=== PATIENT | female | born 1935 | race Caucasian/White ===

== ENCOUNTER 2017-05-21 14:29 | Emergency (ER) | payer OTHER ==
[~2017-05-21] VITALS: Ht 172.7 cm; Wt 68.0 kg
--- NOTE | ~2017-05-21 | EKG ---
[place] [address] [facility] [place] [address] ELECTROCARDIOGRAM REPORT Name: ABDELRAHMAN TAMEZ [id number] Admission: 05/21/17 Attend Phys: Discharge: 05/21/17 Date of : 31 Report #: [id number] THIS REPORT FOR: //name// [facility] ED Test Date: 2017-05-21 Test Time: 15:18:39 Pat Name: ABDELRAHMAN TAMEZ Department: Room: Gender: F Frame Nailer: MZOOK : 1935 Requested By: Anya Harman Order Number: [id number] MD: Anton Alexander Measurements Intervals [place] Rate: 52 P: 57 [place]: 179 QRS: -8 QRSD: 93 T: 212 QT: 424 QTc: 395 Interpretive Statements Sinus bradycardia Probable left atrial enlargement Abnormal R-wave progression, early transition LVH with secondary repolarization abnormality Compared to ECG 11/06/2016 19:48:34 No significant changes Electronically Signed On 05-24-2017 13:27:36 CDT by Anton Alexander [email or web address] <ELECTRONICALLY SIGNED> By: Anton Alexander MD, [facility] 05/24/17 1327 1518 1518 Anton Alexander MD, [facility] /EPI
[~2017-05-21 14:29] MED LIST: ACCUNEB SO1.25 MG/1; ALDACTONE25 MG PO; AMARYL2 MG PO; AMARYL4 MG PO; AMOXICILLIN/POTASSIU PO; ARTIFICIAL TEAR15 M9 OPHTHALMIC; ASPIRIN EC81 M1 PO; ATIVAN PO; ATIVAN0.5 MG; ATIVAN1 MG PO; AUGMENTIN 875875 M1 PO; BENICAR40 MG OR; BENICAR40 MG PO; BYSTOLIC10 MG OR; BYSTOLIC10 MG PO; BYSTOLIC20 MG PO; CALCITONIN NASAL; CATAPRES-TTS 10.1 MG PO; CATAPRES-TTS 10.1 MG TRANSDERM; CATAPRES-TTS 20.2 MG PO; CLARITIN-D 12 H1 TA1; CLARITIN-D 12 H1 TA1 PO; CLARITIN10 MG PO; CLONIDINE HCL0.2 M2 GT; CLONIDINE HCL0.2 M2 PO; CLONIDINE0.1 PO; DIAZEPAM 2MG TAB2 MG PO; ENALAPRIL MALEA10 M1 OR; ENALAPRIL MALEA10 M1 PO; ERYPED 200200 MG/51 PO; FLAGYL500 MG PO; FLOMAX0.4 MG; FLOMAX0.4 MG PO; FUROSEMIDE 40 M40 M1 PO; GLUCOSE4 GM PO; HYDRALAZINE 2525 M1 PO; HYDROCHLOROTH12.5 MG PO; HYDROCODON-ACE1 EAC5 PO; IMODIUM MULTI-1 EACH PO; LANTUS SC; LANTUS SUBQ; LANTUS100 UNIT/M SUBQ; LASIX 20 MG TAB20 MG PO; LASIX 40 MG TAB40 M1 PO; LASIX 40 MG TAB40 M2 PO; LAXATIVE PEG 3317 GM PO; LEVAQUIN 500 M500 M1 PO; LIDODERM 5%1 PATCH; LIDODERM 5%1 PATCH TRANSDERM; LOMOTIL TABLET1 EACH PO; LOPERAMIDE 2 MG2 M1 PO; LOPRESSOR 50 MG50 M1 PO; LORAZEPAM 0.50.5 MG PO; LORAZEPAM 1 MG T1 M1 PO; LORCET PLUS 7.51 TA1 PO; LORTAB; MACROBID 100 M100 M2 PO; MAGOX 400400 MG PO; MIRALAX17 GM PO; MIRALAX255 GM PO; MS CONTIN 60 MG60 M1 PO; MS CONTIN15 MG PO; MS CONTIN30 MG PO; MUCINEX TA600 MG/TA2 PO; NICARDIPINE HCL20 MG PO; NORVASC10 MG PO; OMEPRAZOLE 20 M20 MG PO; ONDANSETRON HCL4 M2 PO; PHENAZOPYRIDIN200 M2 PO; PRILOSEC OTC20 MG PO; PRILOSEC20 MG PO; PROMETHAZINE12.5 M1 PO; PROTONIX40 M2 PO; REGLAN 10 MG TA10 MG PO; SENOKOT-S1 TA1 PO; SPIRONOLACTONE25 M1 PO; SPIRONOLACTONE25 MG PO; TAMSULOSIN HCL0.4 M1 PO; TEKTURNA HCT 11 EACH OR; TOPROL XL100 MG PO; TOPROL XL50 MG; TRAZODONE HCL50 MG PO; URIBEL CAPSULE1 EACH PO; VALIUM10 MG PO; VALIUM2 MG PO; ZOFRAN ODT4 MG DISSOLVE; ZOFRAN ODT4 MG PO; ZOFRAN4 MG PO; ZOLOFT; ZOLOFT 50 MG TA50 M1 PO; ZOLOFT100 MG OR; ZOLOFT100 MG PO
[2017-05-21 15:41] LABS: ABSOLUTE NEUTROPHILS 3.8 thou/uL (1.4-8.2); BASOPHILS 0.6 % (0.0-2.0); EOSINOPHILS 2.2 % (0.0-3.0); HEMATOCRIT 30.8 % (37.0-47.0); HEMOGLOBIN 10.1 gm/dL (12.0-15.0); LYMPHOCYTES 28.1 % (24.0-44.0); MCH 26.7 pg (26.0-34.0); MCHC 32.7 g/dL (28.0-37.0); MCV 81.5 fL (80.0-100.0); MONOCYTES 7.1 % (1.0-8.0); PLATELET COUNT 187 thou/uL (150-400); RBC 3.78 mil/uL (4.20-5.00); RDW 14.4 % (10.5-14.5); WBC 6.2 thou/uL (4.0-11.0)
[2017-05-21 15:42] LABS: MANUAL DIFF NO
[2017-05-21 15:52] LABS: CALCIUM 9.8 mg/dL (8.5-10.1); CREATININE 1.4 mg/dL (0.6-1.0); POTASSIUM 4.1 mmol/L (3.5-5.1)
[2017-05-21 16:01] LABS: ALBUMIN 3.7 g/dL (3.4-5.0); TOTAL BILIRUBIN 0.2 mg/dL (<0.1-1.0); TOTAL PROTEIN 7.8 g/dL (6.4-8.2); TROPONIN-I 0.04 ng/mL (<0.04-0.07)
[2017-05-21 16:10] LABS: INR 1.3; PROTIME 13.5 Seconds (9.3-11.4)
[2017-05-21 16:47] LABS: URINE BILIRUBIN NEGATIVE (Negative); URINE BLOOD 1+ (Negative); URINE COLOR YELLOW; URINE GLUCOSE-RANDOM* NEGATIVE (Negative); URINE KETONES NEGATIVE (Negative); URINE NITRITE POSITIVE (Negative); URINE PROTEIN (DIPSTICK) NEGATIVE (Negative); URINE SPECIFIC GRAVITY 1.015 (1.003-1.035); URINE UROBILINOGEN 0.2 E.U./dl (0.2-1.0)
[2017-05-21 16:58] LABS: SQUAMOUS 4-10 Moderate /LPF (0-3)
[2017-05-21 16:59] LABS: BACTERIA >30 Many /HPF (None Seen); CASTS None Seen /LPF (None Seen); URINE RBC 3-10 Few /HPF (0-2); URINE WBC 6-15 Few /HPF (0-5)
[2017-05-21 17:00] LABS: CRYSTALS None Seen /LPF (None Seen); YEAST Present (None Seen)
[2017-05-21 18:59] VITALS: BP 140/56
== END 2017-05-21 19:01 | disposition home or self-care (01) ==
LOC: ER 14:29
PROVIDERS: Nurse Practitioner Family
DX: S00.12XA Contusion of left eyelid and periocular area, initial encounter (principal); S09.90XA Unspecified injury of head, initial encounter; N39.0 Urinary tract infection, site not specified; I10 Essential (primary) hypertension; E11.9 Type 2 diabetes mellitus without complications; E78.00 Pure hypercholesterolemia, unspecified; M19.90 Unspecified osteoarthritis, unspecified site; F32.9 Major depressive disorder, single episode, unspecified; F41.9 Anxiety disorder, unspecified; F03.90 Unspecified dementia, unspecified severity, without behavioral disturbance, psychotic disturbance, mood disturbance, and anxiety; Z91.81 History of falling; Z96.653 Presence of artificial knee joint, bilateral; W18.39XA Other fall on same level, initial encounter; Y93.89 Activity, other specified; Y92.009 Unspecified place in unspecified non-institutional (private) residence as the place of occurrence of the external cause; Y99.8 Other external cause status

== ENCOUNTER 2017-07-05 22:00 | Inpatient (IN) | payer OTHER ==
[~2017-07-05] VITALS: Ht 162.6 cm; Wt 54.9 kg
--- NOTE | ~2017-07-05 | D ---
[facility] [address] DISCHARGE SUMMARY Name: ABDELRAHMAN TAMEZ Room #: 404-P [facility] IN M.R.#: [id number] Admission: 07/06/17 Attend Phys: Radha Ellis Discharge: 07/12/17 Date of : 31 Report #: [id number] THIS REPORT FOR: //name// CC: Gregory Spring FINAL DIAGNOSES: 1. Intractable nausea and vomiting. 2. Aortic stenosis. 3. Hypertension. HOSPITAL COURSE: The patient was admitted from hospice at the [facility] for intractable nausea and vomiting. It took several days of IV support to control her symptoms, patch to control blood pressure along with scopolamine and scheduled IV Reglan and Zofran seemed to control her symptoms. She was pleasantly confused during her stay and really did not want to eat or drink. PHYSICAL EXAMINATION: GENERAL: On the day of discharge, she was awake and alert, pleasantly confused. VITAL SIGNS: Stable. Blood pressure was reasonably controlled. ABDOMEN: Soft, normoactive bowel sounds. DISPOSITION: She will return to the nursing center with hospice care. Diet and activity as tolerated. Levy to continue for chronic neurogenic bladder. Medicines have been ordered and minimized and hospice will resume symptom control. <ELECTRONICALLY SIGNED> By: Trace Spring MD 07/14/17 1201 1241 1308 Trace Spring MD /kip
--- NOTE | ~2017-07-05 | EKG ---
[address] [place] [address] ELECTROCARDIOGRAM REPORT Name: ABDELRAHMAN TAMEZ MARY Room #: 213-P ADM IN M.R.#: [id number] Admission: 07/06/17 Attend Phys: Radha Ellis Discharge: Date of : 31 Report #: [id number] THIS REPORT FOR: //name// [facility] ED Test Date: 2017-07-05 Test Time: 22:30:21 Pat Name: ABDELRAHMAN TAMEZ Department: Room: 213 Gender: F Post Graduate Intern: MZOOK : 1935 Requested By: Mikey Holbrook Order Number: [id number] MD: Quan Cooley Measurements Intervals [place] Rate: 88 P: 35 MI: 188 QRS: 0 QRSD: 70 T: QT: 417 QTc: 505 Interpretive Statements Sinus rhythm Biatrial enlargement Abnormal R-wave progression, early transition Left ventricular hypertrophy Borderline T abnormalities, inferior leads PVC Compared to ECG 05/21/2017 15:18:39 T-wave abnormality now present Sinus bradycardia no longer present Early repolarization no longer present Electronically Signed On 07-06-2017 8:10:58 CDT by Quan Cooley [email or web address] <ELECTRONICALLY SIGNED> By: Quan Cooley MD 07/06/17809 29 29 Quan Cooley MD /EPI
--- NOTE | ~2017-07-05 | H ---
[facility] [address] [place] [address] HISTORY AND PHYSICAL Name: ABDELRAHMAN TAMEZ Room #: 213-P ADM IN M.R.#: [id number] Admission: 07/06/17 Attend Phys: Radha Ellis Discharge: Date of : 31 Report #: [id number] THIS REPORT FOR: //name// CC: Gregory Spring DATE OF SERVICE: 07/06/2017 CHIEF COMPLAINT: Nausea and vomiting. HISTORY OF PRESENT ILLNESS: The patient is an 82-year-old female from [facility] who was on hospice care, sent to the Emergency Room for treatment of intractable nausea and vomiting. One or two months ago, she had, I believe a fall and admission to [facility] and suffered an intracerebral injury I believe with a small bleed. Once stabilized, she attempted rehabilitation, but was unable to perform and transferred to [facility]. After approximately a week, she was really not participating well with physical therapy, not eating well. She had a consultation with her daughter with Dr. Wilkinson, her primary care physician. At that time, goals of treatment were shifted from recovery to palliative care, and she was admitted to hospice care where she has been treated for about a month. However, in the last 1-2 days, she has had intractable nausea and vomiting. All attempts with outpatient treatment at the skilled nursing along with hospice assistance are tried with no improvement. She was sent to the Emergency Room and admitted for symptom treatment. PAST MEDICAL HISTORY: Cerebrovascular accident in 2014 and a recent, I believe, cerebral hemorrhage about 2 months ago, hypertension, diabetes type 2, gastroparesis. She has had multiple admissions in the past for uncontrolled hypertension, nausea, vomiting. Workup with CT, endoscopies have been unremarkable in the past. She also has a history of lumbar spinal stenosis, chronic pain syndrome, depression, anxiety, dementia, aortic valve stenosis. PAST SURGICAL HISTORY: She has had bilateral knee replacement, cholecystectomy. FAMILY HISTORY: Noncontributory. SOCIAL HISTORY: No chronic alcohol or tobacco use. ALLERGIES: ANTICHOLINERGICS, CHLORPROMAZINE, BENADRYL, IPRATROPIUM, OXYCODONE, PIROXICAM, QUINIDINE, LOVASTATIN, NIFEDIPINE. MEDICATIONS: Hydrocodone, morphine ER, clonidine. Symptom treatment with morphine p.r.n., Haldol p.r.n. Hyoscyamine p.r.n. Compazine p.r.n., Zofran p.r.n. She has also been on scopolamine patch, Flomax, temazepam, Ativan liquid, lorazepam -- sertraline, although in recent weeks, she had been refusing medications. [address] [address] HISTORY AND PHYSICAL Name: ABDELRAHMAN TAMEZ Room #: 213-P [facility] IN M.R.#: [id number] Admission: 07/06/17 Attend Phys: Radha Ellis Discharge: Date of : 31 Report #: [id number] REVIEW OF SYSTEMS: She is unable to give review. PHYSICAL EXAMINATION: VITAL SIGNS: Temperature 37.7, pulse 103, respirations 26, blood pressure 185/88, O2 sat 93% on 2 liters. GENERAL: She is asleep, but easily arousable, looks chronically ill. HEAD AND NECK: Unremarkable. LUNGS: Clear. HEART: Regular. ABDOMEN: Soft, normoactive bowel sounds. No rebound or guarding. EXTREMITIES: No cyanosis, clubbing or edema. NEUROLOGIC: Motor strength 3/5 throughout. Laboratory data and CT imaging were all reviewed and x-ray. ASSESSMENT: 1. Intractable nausea and vomiting. 2. Hypertensive urgency. 3. Elevated troponin, likely due to hypertension emergency. 4. Aortic stenosis. 5. Diabetes type 2. 6. Gastroparesis. 7. Cerebrovascular disease, with remote history of stroke and recent history of cerebral hemorrhage. PLAN: At this point, our focus would be on symptom management. She continues to not resuscitate status. No plans to investigate cardiac status at this time as she has been under hospice care recently. This is likely demand ischemia from hypertension and at this point should just be treated conservatively. <ELECTRONICALLY SIGNED> By: Trace Spring MD 07/06/17 1544 0937 1020 Trace Spring MD /nt
[2017-07-05 22:38] LABS: ABSOLUTE NEUTROPHILS 9.3 thou/uL (1.4-8.2); BASOPHILS 0.5 % (0.0-2.0); HEMATOCRIT 39.8 % (37.0-47.0); HEMOGLOBIN 12.9 gm/dL (12.0-15.0); LYMPHOCYTES 5.3 % (24.0-44.0); MCH 25.3 pg (26.0-34.0); MCHC 32.5 g/dL (28.0-37.0); MCV 77.9 fL (80.0-100.0); MONOCYTES 1.8 % (1.0-8.0); PLATELET COUNT 262 thou/uL (150-400); POLYS 92.4 % (36.0-66.0); RBC 5.11 mil/uL (4.20-5.00); RDW 14.7 % (10.5-14.5); WBC 10.1 thou/uL (4.0-11.0)
[2017-07-05 22:38] LABS: URINE BILIRUBIN NEGATIVE (Negative); URINE BLOOD 1+ (Negative); URINE COLOR YELLOW; URINE GLUCOSE-RANDOM* 3+ (Negative); URINE KETONES 1+ (Negative); URINE NITRITE NEGATIVE (Negative); URINE PROTEIN (DIPSTICK) 2+ (Negative); URINE UROBILINOGEN 0.2 E.U./dl (0.2-1.0)
[2017-07-05 22:43] LABS: MANUAL DIFF NO
[2017-07-05 22:48] LABS: CASTS None Seen /LPF (None Seen); SQUAMOUS None Seen /LPF (0-3); URINE RBC 0-2 Rare /HPF (0-2); URINE WBC None Seen /HPF (0-5)
[2017-07-05 22:49] LABS: BACTERIA None Seen /HPF (None Seen); CRYSTALS None Seen /LPF (None Seen)
[2017-07-05] MEDS ORDERED: TYLENOL325 MG PO (22:50)
[2017-07-05] MEDS ORDERED: MSL20MG/ML PO (22:51)
[2017-07-05] MEDS ORDERED: FEVERALL650 M1 RECTAL (22:52)
[2017-07-05] MEDS ORDERED: HALOPERIDOL2 MG/1 ML PO (22:54)
[2017-07-05] MEDS ORDERED: NITROGLYCERIN0.4 MG SUBLING (22:55)
[2017-07-05] MEDS ORDERED: LEVSIN0.125 MG PO (22:56)
[2017-07-05 22:57] LABS: CREATININE 1.1 mg/dL (0.6-1.0); POTASSIUM 3.3 mmol/L (3.5-5.1)
[2017-07-05] MEDS ORDERED: COMPAZINE25 MG RECTAL (22:57)
[2017-07-05] MEDS ORDERED: SCOPOLAMINE1 EACH TRANSDERM (22:57)
[2017-07-05] MEDS ORDERED: FLOMAX0.4 MG PO (23:01)
[2017-07-05] MEDS ORDERED: RESTORIL7.5 MG PO (23:01)
[2017-07-05] MEDS ORDERED: LORAZEPAM 22 MG/1 ML PO (23:02)
[2017-07-05 23:03] LABS: ALBUMIN 4.3 g/dL (3.4-5.0); DIRECT BILIRUBIN 0.2 mg/dL (<0.1-0.3); TOTAL BILIRUBIN 0.7 mg/dL (<0.1-1.0); TOTAL PROTEIN 8.5 g/dL (6.4-8.2)
[2017-07-06] VITALS (8 sets, daily range): BP systolic 134–203; BP diastolic 65–110
[2017-07-07] VITALS (7 sets, daily range): BP systolic 157–194; BP diastolic 53–82
[2017-07-07 03:25] LABS: HEMOGLOBIN 11.2 gm/dL (12.0-15.0); MCH 25.1 pg (26.0-34.0); MCHC 32.1 g/dL (28.0-37.0); MCV 78.1 fL (80.0-100.0); RBC 4.48 mil/uL (4.20-5.00); RDW 14.7 % (10.5-14.5); WBC 15.3 thou/uL (4.0-11.0)
[2017-07-07 03:41] LABS: ALBUMIN 3.2 g/dL (3.4-5.0); CALCIUM 9.1 mg/dL (8.5-10.1); CREATININE 1.3 mg/dL (0.6-1.0); POTASSIUM 3.1 mmol/L (3.5-5.1); TOTAL BILIRUBIN 0.5 mg/dL (<0.1-1.0)
[2017-07-08 04:01] LABS: HEMATOCRIT 34.4 % (37.0-47.0); HEMOGLOBIN 11.1 gm/dL (12.0-15.0); MCH 25.2 pg (26.0-34.0); MCHC 32.3 g/dL (28.0-37.0); MCV 77.9 fL (80.0-100.0); RBC 4.42 mil/uL (4.20-5.00); RDW 14.5 % (10.5-14.5)
[2017-07-08 04:07] LABS: CALCIUM 8.7 mg/dL (8.5-10.1)
[2017-07-08 04:24] VITALS: BP 173/66
[2017-07-08 07:36] VITALS: BP 179/56
[2017-07-08 14:44] VITALS: BP 188/56
[2017-07-08 16:20] VITALS: BP 181/77
[2017-07-08 19:18] VITALS: BP 150/68
[2017-07-08 23:49] VITALS: BP 172/57
[2017-07-09 05:40] VITALS: BP 182/62
[2017-07-09 08:27] VITALS: BP 167/77
[2017-07-09 11:31] LABS: URINE BILIRUBIN NEGATIVE (Negative); URINE BLOOD TRACE (Negative); URINE COLOR YELLOW; URINE GLUCOSE-RANDOM* 3+ (Negative); URINE KETONES NEGATIVE (Negative); URINE PROTEIN (DIPSTICK) 1+ (Negative); URINE UROBILINOGEN 0.2 E.U./dl (0.2-1.0)
[2017-07-09 11:32] LABS: URINE LEUKOCYTES-REFLEX TRACE (Negative)
[2017-07-09 11:44] VITALS: BP 119/57
[2017-07-09 12:08] LABS: CASTS None Seen /LPF (None Seen); SQUAMOUS 0-3 Few /LPF (0-3)
[2017-07-09 12:09] LABS: CRYSTALS None Seen /LPF (None Seen); URINE RBC 0-2 Rare /HPF (0-2); YEAST-REFLEX Present (None Seen)
[2017-07-09 15:42] VITALS: BP 116/61
[2017-07-09 17:16] VITALS: BP 117/54
[2017-07-09 19:35] VITALS: BP 130/72
[2017-07-10 01:50] VITALS: BP 130/49
[2017-07-10 03:27] VITALS: BP 136/52
[2017-07-10 03:49] LABS: CALCIUM 8.8 mg/dL (8.5-10.1); CREATININE 1.1 mg/dL (0.6-1.0); POTASSIUM 4.2 mmol/L (3.5-5.1)
[2017-07-10 07:09] VITALS: BP 149/50
[2017-07-10 15:53] VITALS: BP 164/58
[2017-07-10 21:30] VITALS: BP 131/58
[2017-07-11 04:28] VITALS: BP 146/56
[2017-07-11 09:51] VITALS: BP 145/69
[2017-07-11 19:15] VITALS: BP 133/67
[2017-07-11 20:05] VITALS: BP 128/57
[2017-07-11 20:40] VITALS: BP 128/57
[2017-07-12 05:06] VITALS: BP 171/78
[2017-07-12 06:28] VITALS: BP 166/59
[2017-07-12 08:00] VITALS: BP 183/51
[2017-07-12] MEDS ORDERED: CATAPRES-TTS 20.2 MG TRANSDERM (12:35)
[2017-07-12] MEDS ORDERED: MSL20MG/ML SUBLING (12:35)
[2017-07-12] MEDS ORDERED: REGLAN 10 MG TA10 MG PO (12:36)
[2017-07-12] MEDS ORDERED: TRANSDERM-SCOP1 EACH TRANSDERM (12:36)
[2017-07-12] MEDS ORDERED: ZOFRAN ODT4 MG PO (12:36)
[2017-07-12 13:21] VITALS: BP 183/51
== END 2017-07-12 17:00 | DRG 70 ==
LOC: ER 22:00 → 2N 07-06 00:34 → EROBS 07-06 00:34 → 2N 07-06 01:15 → 4N 07-09 17:09
PROVIDERS: Internal Medicine Geriatric Medicine; Nurse Practitioner
DX: G93.41 Metabolic encephalopathy (principal); N17.0 Acute kidney failure with tubular necrosis; E87.2 Acidosis; R11.2 Nausea with vomiting, unspecified; K31.84 Gastroparesis; E11.43 Type 2 diabetes mellitus with diabetic autonomic (poly)neuropathy; I10 Essential (primary) hypertension; E78.00 Pure hypercholesterolemia, unspecified; M19.90 Unspecified osteoarthritis, unspecified site; F32.9 Major depressive disorder, single episode, unspecified; F41.9 Anxiety disorder, unspecified; F03.90 Unspecified dementia, unspecified severity, without behavioral disturbance, psychotic disturbance, mood disturbance, and anxiety; G89.4 Chronic pain syndrome; Z96.653 Presence of artificial knee joint, bilateral; E11.65 Type 2 diabetes mellitus with hyperglycemia; E86.0 Dehydration; I16.0 Hypertensive urgency; I35.0 Nonrheumatic aortic (valve) stenosis; Z66 Do not resuscitate; Z53.29 Procedure and treatment not carried out because of patient's decision for other reasons; Z90.49 Acquired absence of other specified parts of digestive tract; Z79.899 Other long term (current) drug therapy; Z88.8 Allergy status to other drugs, medicaments and biological substances; Z86.73 Personal history of transient ischemic attack (TIA), and cerebral infarction without residual deficits; Z95.2 Presence of prosthetic heart valve; Z87.440 Personal history of urinary (tract) infections
CPT/HCPCS: 10194; 10790